=== PATIENT | female | born 1990 | race Caucasian/White ===

== ENCOUNTER → 2016-05-21 | Outpatient (REF) | payer OTHER | LOC: M SFHCLERA 16:08 | PROVIDERS: ATTEND Physician Assistant | DX: J02.9 Acute pharyngitis, unspecified (principal) ==

== ENCOUNTER → 2016-11-26 | Outpatient (REF) | payer OTHER | LOC: M LAB REF 16:26 | PROVIDERS: ATTEND Physician Assistant | DX: J02.9 Acute pharyngitis, unspecified (principal) ==

== ENCOUNTER → 2017-06-09 | Outpatient (REF) | payer OTHER | LOC: M LAB REF 18:15 | DX: O99.211 Obesity complicating pregnancy, first trimester (principal); Z3A.00 Weeks of gestation of pregnancy not specified | CPT/HCPCS: 87086 ==

== ENCOUNTER → 2017-07-24 | Outpatient (CLI) | payer OTHER | LOC: M RAD 15:47 | DX: Z34.82 Encounter for supervision of other normal pregnancy, second trimester (principal) | CPT/HCPCS: 76811 ==

== ENCOUNTER → 2017-08-13 | Outpatient (CLI) | payer OTHER | LOC: M RAD 06:17 | DX: O99.212 Obesity complicating pregnancy, second trimester (principal); Z3A.20 20 weeks gestation of pregnancy | CPT/HCPCS: 76816 ==

== ENCOUNTER → 2017-09-30 | Outpatient (CLI) | payer OTHER ==
[2017-09-30 09:49] LABS: HEMATOCRIT 33.8 % (36.0-47.0); HEMOGLOBIN 11.5 g/dl (12.0-15.5); MEAN CORPUSCULAR HEMOGLOBIN 28.5 pg (27.0-33.0); MEAN CORPUSCULAR VOLUME 83.9 fl (80.0-96.0); PLATELET COUNT, AUTOMATED 224 10^3/uL (150-450); RED BLOOD COUNT 4.03 10^6/uL (4.00-5.40); RED CELL DISTRIBUTION WIDTH 13.4 % (11.5-14.5); WHITE BLOOD COUNT 8.2 10^3/uL (4.0-10.0)
[2017-09-30 10:04] LABS: GLUCOSE CHALLENGE TEST 1 HOUR 121 MG/DL (LESS THAN 140)
== END ==
LOC: M RAD 07:20
DX: Z34.82 Encounter for supervision of other normal pregnancy, second trimester (principal)
CPT/HCPCS: 76816

== ENCOUNTER → 2017-10-23 | Outpatient (REF) | payer OTHER | LOC: M LAB REF 16:56 | DX: Z34.82 Encounter for supervision of other normal pregnancy, second trimester (principal); Z36.89 Encounter for other specified antenatal screening ==

== ENCOUNTER → 2017-11-05 | Outpatient (REF) | payer OTHER | LOC: M LAB REF 17:07 | DX: Z34.82 Encounter for supervision of other normal pregnancy, second trimester (principal) ==

== ENCOUNTER → 2017-11-25 | Outpatient (REF) | payer OTHER | LOC: M LAB REF 18:38 | DX: O34.211 Maternal care for low transverse scar from previous cesarean delivery (principal) | CPT/HCPCS: 87081 ==

== ENCOUNTER 2018-01-02 06:53 | Inpatient (IN) | payer OTHER ==
[2018-01-02 08:23] LABS: HEMATOCRIT 33.1 % (36.0-47.0); MEAN CORPUSCULAR HEMOGLOBIN 26.8 pg (27.0-33.0); MEAN CORPUSCULAR HGB CONC 33.2 g/dl (32.0-36.5); MEAN CORPUSCULAR VOLUME 80.7 fl (80.0-96.0); PLATELET COUNT, AUTOMATED 215 10^3/uL (150-450); RED CELL DISTRIBUTION WIDTH 13.6 % (11.5-14.5); WHITE BLOOD COUNT 8.5 10^3/uL (4.0-10.0)
[2018-01-02 08:36] LABS: ALT/SGPT 21 U/L (12-78); AST/SGOT 19 U/L (7-37); BILIRUBIN,TOTAL 0.2 MG/DL (0.2-1.0); GLOMERULAR FILTRATION RATE > 60.0 (>60); LDH LACTATE DEHYDROGENASE 173 U/L (84-246); URIC ACID 6.3 MG/DL (2.6-6.0)
[2018-01-02] MEDS: OXYTOCIN DRIP 30 UNITS in APPROPRIATE DILUENT 1 EA IV (08:43)
[2018-01-02] MEDS: LR 1,000 ML IV ×2 (08:43→19:54)
[2018-01-02 09:10] LABS: TOTAL PROTEIN,RANDOM URINE 27.2 MG/DL (0.0-12.0)
[2018-01-02] MEDS ORDERED: FENTANYL 2MCG/ML ROPIVACAINE 0.2% IN 0.9% NACL 200ML IVBAG As Ordered (17:42)
[2018-01-02] MEDS: FENTANYL/ROPIVACAINE/NACL BAG 200 ML EPIDURAL (18:57)
[2018-01-02] MEDS ORDERED: EPIDURAL/PCA KEYS XX (19:00)
[2018-01-02] MEDS ORDERED: REFRIGERATOR IV KEYS XX (19:00)
[2018-01-02] MEDS ORDERED: ePHEDrine SULFATE 25 MG/5 ML(5MG/ML) SYRINGE IV (19:00)
[2018-01-02] MEDS ORDERED: NALOXONE INJ 0.4 MG/1 ML VIAL (J2310) IV (19:00)
[2018-01-02] MEDS ORDERED: EPIDURAL COMMENT XX (19:00)
[2018-01-02] MEDS ORDERED: ONDANSETRON 4MG/2ML VIAL (J2405) IV (19:00)
[2018-01-02] MEDS ORDERED: diphenhydrAMINE INJ 50MG/ML VIAL (J1200) IV (19:00)
[2018-01-02] MEDS ORDERED: LACTATED RINGER'S 1000 ML IV (19:00)
[2018-01-02] MEDS: FAMOTIDINE 20 MG TAB PO (19:54)
[2018-01-02] MEDS ORDERED: ACETAMINOPHEN 500 MG TAB PO (22:45)
[2018-01-03] MEDS ORDERED: MEASLES,MUMPS,RUBELLA VACCINE INJ (MMR-II) (90707) SC (00:30)
[2018-01-03] MEDS ORDERED: DIBUCAINE 1% OINTMENT 30GM TOP (00:30)
[2018-01-03] MEDS ORDERED: DOCUSATE SODIUM 100 MG CAP PO (00:30)
[2018-01-03] MEDS ORDERED: ANUSOL HC CREAM 30GM TOP (00:30)
[2018-01-03] MEDS ORDERED: METHYLERGONOVINE MALEATE 0.2 MG TAB PO (00:30)
[2018-01-03] MEDS ORDERED: RHOGAM 300 MCG (1500 IU) INJ (J2790) IM (00:30)
[2018-01-03] MEDS: IBUPROFEN 800 MG TAB PO ×3 (00:44→20:09)
[2018-01-03] MEDS: OXYTOCIN DRIP 30 UNITS in APPROPRIATE DILUENT 1 EA IV (01:00)
[2018-01-03] MEDS: FAMOTIDINE 20 MG TAB PO ×2 (08:28→20:08)
[2018-01-03] MEDS: PRENATAL VITAMINS CHEWABLE TABLET PO (08:28)
[2018-01-04] MEDS: PRENATAL VITAMINS CHEWABLE TABLET PO (07:24)
[2018-01-04] MEDS: FAMOTIDINE 20 MG TAB PO (07:25)
[2018-01-04] MEDS: IBUPROFEN 800 MG TAB PO (07:25)
== END 2018-01-04 10:45 | disposition home or self-care (01) | DRG 807 ==
LOC: M LDI 06:53 → M OBS 01-03 01:00
PROC: 10E0XZZ Delivery of Products of Conception, External Approach (ICD-10-PCS; principal; 2018-01-02)
PROC: 0KQM0ZZ Repair Perineum Muscle, Open Approach (ICD-10-PCS; 2018-01-02)
PROC: 3E033VJ Introduction of Other Hormone into Peripheral Vein, Percutaneous Approach (ICD-10-PCS; 2018-01-02)
DX: O48.0 Post-term pregnancy (principal); Z37.0 Single live birth; Z3A.41 41 weeks gestation of pregnancy; O34.211 Maternal care for low transverse scar from previous cesarean delivery; O70.1 Second degree perineal laceration during delivery